=== PATIENT | male | born 1995 | race Caucasian/White ===

== ENCOUNTER 2019-09-20 18:41 | Emergency (ER) | payer OTHER, SELFPAY ==
--- NOTE | 2019-09-20 20:43 | RAD ---
Exam: Chest one view HISTORY:Cough x1 month. Body aches and chills. Comparison: None FINDINGS: Cardiac silhouette: Normal Aorta: Unremarkable Pulmonary vessels: Normal Costophrenic angles: Clear LUNGS: Focal infiltrate in the right midlung may be present Pneumothorax: None Osseous abnormalities: None IMPRESSION: Possible focal infiltrate in the right midlung.
[2019-09-20] MEDS ORDERED: Lidocaine 1% PF 5 ML VIAL ONE (21:00)
[2019-09-20] MEDS ORDERED: cefTRIAXone\\ROCEPHIN 1 GM VIAL ONE (21:00)
[2019-09-21 11:31] LABS: SARS-CoV-2 MS2 Positive; SARS-CoV-2 N Gene Negative; SARS-CoV-2 S Gene Negative; SARS-CoV-2 orf1ab Negative
== END 2019-09-20 21:11 | disposition home or self-care (01) ==
LOC: ERS 18:41
DX: J18.9 Pneumonia, unspecified organism (principal); Z20.828 Contact with and (suspected) exposure to other viral communicable diseases; F17.210 Nicotine dependence, cigarettes, uncomplicated
CPT/HCPCS: 71045; 87635; 96372; J0696; J2001; U0003

== ENCOUNTER 2019-10-08 18:40 | Emergency (ER) | payer SELFPAY | END 2019-10-08 19:08 | disposition home or self-care (01) | LOC: ERS 18:40 | DX: Z02.89 Encounter for other administrative examinations (principal); F17.210 Nicotine dependence, cigarettes, uncomplicated | CPT/HCPCS: 99281 ==

== ENCOUNTER 2021-07-01 19:06 | Emergency (ER) | payer OTHER, SELFPAY | END 2021-07-01 19:46 | disposition home or self-care (01) | LOC: ERS 19:06 | DX: J02.9 Acute pharyngitis, unspecified (principal) | CPT/HCPCS: 99283 ==